=== PATIENT | male | born 1975 | race Caucasian/White ===

== ENCOUNTER 2021-04-07 22:49 | Emergency (ER) | payer OTHER ==
[2021-04-08 00:17] LABS: HEMOGLOBIN 14.8 gm/dl (14.0-17.5); RED BLOOD COUNT 4.66 M/UL (4.20-5.50); WHITE BLOOD COUNT 7.3 K/UL (4.5-11.0)
[2021-04-08 00:26] LABS: BUN/CREATININE RATIO 11 (0-10)
[2021-04-08] MEDS ORDERED: LODINE CAP 300300 MG PO (01:39)
[2021-04-08] MEDS ORDERED: VENTOLIN HFA 66.7 GM INH (01:39)
== END 2021-04-08 01:45 | disposition home or self-care (01) ==
LOC: ER1 22:49
PROVIDERS: Physician Assistant
DX: U07.1 COVID-19 (principal); F17.210 Nicotine dependence, cigarettes, uncomplicated; Z88.0 Allergy status to penicillin; Z88.8 Allergy status to other drugs, medicaments and biological substances
CPT/HCPCS: 0240U; 71045; 80053; 85025; 99283